=== PATIENT | male | born 1960 | race Caucasian/White ===

== ENCOUNTER 2019-06-16 08:17 | Inpatient (IN) | payer OTHER ==
[2019-06-16 11:47] VITALS: BMI 28.6
--- NOTE | 2019-06-16 14:05 | PN ---
"Teaching Attending Note Name of Resident: Ayanna Davila ATTENDING PHYSICIAN STATEMENT I saw and evaluated the patient. I reviewed the resident's note and discussed the case with the resident. I agree with the resident's findings and plan as documented. SUBJECTIVE:pt here for heroin and benzo detox . s/p ER visit for R LE DOppler 2/2 R LE edema, negative for DVT . OBJECTIVE: wnwd This report was requested by: Keesha Rios | Reference #: [id number] Others' Prescriptions Patient Name: Ruben Harley Date: 1960 Address: [address] [place], [place] [address] [address] [place] [address] Sex: Male Rx Written Rx Dispensed Drug Quantity Days Supply Prescriber Name 06/03/2019 06/05/2019 oxycodone-acetaminophen 5-325 mg tab 20 10 Rubin Bradley MD 03/09/2019 03/09/2019 hydrocodone-acetaminophen 7.5-325 mg tablet 14 7 Rubin Bradley MD Patient Name: Ruben Harley Date: 1960 Address: [address] [place], [place] [address] [address] Sex: Male Rx Written Rx Dispensed Drug Quantity Days Supply Prescriber Name 03/06/2019 03/09/2019 alprazolam 0.5 mg tablet 60 30 CabOrlando torres MD 03/06/2019 03/07/2019 zolpidem tartrate 10 mg tablet 30 30 CabagnOrlando caban MD 02/06/2019 02/12/2019 hydrocodone-acetaminophen 7.5-325 mg tablet 14 7 Rubin Bradley MD 02/07/2019 02/07/2019 alprazolam 0.5 mg tablet 60 30 CabOrlando torres MD 01/31/2019 02/01/2019 zolpidem tartrate 10 mg tablet 30 30 CabOrlando torres MD 01/22/2019 01/22/2019 oxycodone-acetaminophen 5-325 mg tablet 20 10 Rubin Bradley MD 12/26/2018 12/26/2018 oxycodone-acetaminophen 5-325 mg tablet 20 10 Rubin Bradley MD 11/22/2018 11/25/2018 zolpidem tartrate 10 mg tablet 30 30 CabagnOrlando caban MD 11/03/2018 11/07/2018 alprazolam 0.5 mg tablet 60 30 CabagnOrlando caban MD 11/05/2018 11/05/2018 oxycodone-acetaminophen 5-325 mg tablet 20 10 MirnaRubin MD 10/31/2018 10/31/2018 alprazolam 0.5 mg tablet 14 7 Orlando Dey MD 09/09/2018 10/07/2018 zolpidem tartrate 10 mg tablet 30 30 CabOrlando torres MD 07/25/2018 07/28/2018 zolpidem tartrate 5 mg tablet 30 30 CabagnotOrlando MD 06/28/2018 06/28/2018 zolpidem tartrate 5 mg tablet 30 30 CabOrlando torres MD Patient Name: Ruben Harley Date: 1960 Address: [facility] [place] [address] Sex: Male Rx Written Rx Dispensed Drug Quantity Days Supply Prescriber Name 10/29/2018 10/31/2018 zubsolv 5.7-1.4 mg tablet sl 15 15 Vando, Devon 10/29/2018 10/31/2018 zolpidem tartrate 10 mg tablet 30 30 CabagnOrlando caban MD 09/08/2018 09/08/2018 zubsolv 5.7-1.4 mg tablet sl 30 30 Vando, Devon 09/05/2018 09/05/2018 zolpidem tartrate 10 mg tablet 30 30 CabagnotOrlando MD 08/08/2018 08/11/2018 zolpidem tartrate 10 mg tablet 30 30 Vando , Devon 08/08/2018 08/08/2018 zubsolv 5.7-1.4 mg tablet sl 30 30 Vando, Devon 07/11/2018 07/19/2018 zolpidem tartrate 10 mg tablet 30 30 Vando , [place] 07/11/2018 07/11/2018 zubsolv 5.7-1.4 mg tablet sl 30 30 Vando, Devon 06/13/2018 06/25/2018 zolpidem tartrate 10 mg tablet 30 30 Vando , Devon Vital Signs - 24 hr 06/16/19 11:45 Temperature 98.0 F Pulse Rate 69 Respiratory 18 Rate Blood Pressure 164/97 ASSESSMENT AND PLAN: OUD - Methadone detox Sedative use d/o : Valium detox"
--- NOTE | 2019-06-16 14:14 | HP ---
COWS - Scale Resting Pulse: 0= [place] 80 or Below Sweatin= Chills/Flushing Restless Observation: 0= Sits Still Pupil Size: 0= Normal to Room Light Bone or Joint Aches: 1= Mild Discomfort Runny Nose/ Eye Tearin= Runny Nose/Eyes GI Upset > 30mins: 2= Nausea/Diarrhea Tremor Observation: 1= Tremor [place], Not Seen Yawning Observation: 0= None Anxiety or Irritability: 2=Irritable/Anxious Goose Flesh Skin: 0=Smooth Skin COWS Score: 9 CIWA Score Nausea/Vomitin-Mild Nausea/No Vomiting Muscle Tremors: 3 Anxiety: 3 Agitation: 0-Normal Activity Paroxysmal Sweats: No Perspiration Orientation: 0-Oriented Tacttile Disturbances: 1-Very Mild Itch/Numbness Auditory Disturbances: 0-None Visual Disturbances: 0-None Headache: 0-None Present CIWA-Ar Total Score: 8 - Admission Criteria OASAS Guidelines: Admission for Medically Managed Detox: Requires at least one of the followin. CIWA greater than 12 2. Seizures within the past 24 hours 3. Delirium tremens within the past 24 hours 4. Hallucinations within the past 24 hours 5. Acute intervention needed for co occurring medical disorder 6. Acute intervention needed for co occurring psychiatric disorder 7. Severe withdrawal that cannot be handled at a lower level of care (continued vomiting, continued diarrhea, abnormal vital signs) requiring intravenous medication and/or fluids 8. Admitting History and Physical - Admission Chief Complaint: detox, wants to get clean for hip sx History of Present Illness: 59 yo M PMH of HTN, HLD, hypothyroid, polysubstance abuse (cocaine, heroin, fentanyl, suboxone) presents for detox. pt states that he is planning for hip surgery and needs to be "clean" . 5 mo ago pt was in rehab in [place] but relapsed immediately after dc. heroin: 5 bags daily, started in 30s . last use was 3 days ago crack cocaine: $200/day. started in 30s. last use 3 days Fentanyl: pt states its in the crack Suboxone: 3 pills for past 3 days,does not know dosage Xanax, buys 75 at a time and takes 3-4 daily Lives with girlfriend who also uses substances. medication list confirmed with [facility] pharmacy , recently filled . pt admitted for detox. pt requests letter for ortho once detox is completed History Source: Patient Limitations to Obtaining History: No Limitations - Past Medical History Cardiovascular: Yes: HTN, Hyperlipdemia Psych: Yes: Anxiety Musculoskeletal: Yes: Osteoarthritis Endocrine: Yes: Hypothyroidism - Past Surgical History Additional Past Surgical History: R and L elbow Admission ROS S - HPI Allergies/Adverse Reactions: Allergies Allergy/AdvReac Type Severity Reaction Status Date / Time No Known Allergies Allergy Verified 06/16/19 10:03 - Ebola screening Have you traveled outside of the country in the last 21 days: No Have you had contact with anyone from an Ebola affected area: No Do you have a fever: No - Review of Systems Constitutional: Chills Respiratory: denies: Shortness of Breath Cardiac: denies: Chest Pain GI: reports: Diarrhea, Nausea Neuro: reports: Unsteady Gait Psychiatric: reports: Orientated x3, Anxious Patient History - Smoking Cessation Smoking history: Never smoked - Substances abused Heroin Substance route: Injection Frequency: Daily Amount used: 5 bags Age of first use: 30 Date of last use: 06/13/19 Cocaine Substance route: Smoking Frequency: Daily Amount used: $200 Age of first use: 34 Date of last use: 06/13/19 Buprenorphine Other (specify): for the last 3 days Substance route: Oral Frequency: Daily Amount used: 1 strip Age of first use: 59 Date of last use: 06/16/19 Alprazolam (Xanax) Substance route: Oral Frequency: Daily Amount used: 3-4 pills Age of first use: 59 Date of last use: 06/16/19 Admission Physical Exam [facility] - Vital Signs Vital Signs: Vital Signs - 24 hr 06/16/19 11:45 Temperature 98.0 F Pulse Rate 69 Respiratory 18 Rate Blood Pressure 164/97 - Physical General Appearance: Yes: Within Normal Limits, No Apparent Distress, Tremorous, Irritable, Anxious HEENTM: Yes: EOMI, SORAIDA, Pharynx Normal Respiratory: Yes: Lungs Clear, Normal Breath Sounds, No Accessory Muscle Use Abdominal: Yes: Non Tender, Soft, Hepatomegaly. No: Distended, Tenderness Back: No: CVA Tenderness Musculoskeletal: Yes: Joint Stiffness (L hip stiffness and pain), Other (walks with walker) Extremities: No: Calf Tenderness Neurological: Yes: career development facilitator II-XII NML intact, Fully Oriented - Diagnostic (1) Heroin addiction Current Visit: Yes Status: Acute (2) Heroin abuse Current Visit: Yes Status: Acute (3) Cocaine abuse Current Visit: Yes Status: Acute Cleared for Admission [facility] - Detox or Rehab [facility] Level of Care: Medically Managed Detox Regimen/Protocol: Methadone, Valium Breathalyzer - Breathalyzer Breathalyzer: 0 Urine Drug Screen - Test Device Lot number: [id number] Expiration date: 12/24/20 - Control Is test valid?: Yes - Results Drug screen NEGATIVE: No Urine drug screen results: BOOKER-Cocaine, FEN-Fentanyl, BZO-Benzodiazepines, BUP- Suboxone Inpatient Rehab Admission - Rehab Decision to Admit Inpatient rehab admission?: No
[2019-06-16] MEDS ORDERED: cloNIDine HCL 0.1 MG TABLET PO PRN (14:35)
[2019-06-16] MEDS ORDERED: METHADONE HCL 10 MG TABLET (FOR DETOX USE ONLY) PO ONE ×2 (14:35→21:00)
[2019-06-16] MEDS ORDERED: MAGNESIUM HYDROX 2400MG/30ML ORAL SUSPENSION 30 ML CUP PO PRN (14:35)
[2019-06-16] MEDS ORDERED: BISMUTH SUBSALICYLATE 262 MG/15 ML BTL PO PRN (14:35)
[2019-06-16] MEDS ORDERED: IBUPROFEN 400 MG TABLET (FP) PO PRN (14:35)
[2019-06-16] MEDS ORDERED: ACETAMINOPHEN 325 MG TABLET (FP) PO PRN ×2 (14:35)
[2019-06-16] MEDS ORDERED: hydrOXYzine PAMOATE 25 MG CAPSULE (FP) PO PRN (14:35)
[2019-06-16] MEDS ORDERED: MAG HYDROX/AL HYDROX/SIMETH 30 ML UNIT-DOSE CUP PO PRN (14:35)
[2019-06-16] MEDS ORDERED: MENTHOL/PHENOL 1 EACH UD MM PRN (14:35)
[2019-06-16] MEDS ORDERED: MELATONIN 5 MG TABLETS PO PRN (14:35)
[2019-06-16] MEDS ORDERED: MAGNESIUM CITRATE 300 ML BOTTLE PO PRN (14:35)
[2019-06-16] MEDS: diazePAM 5 MG TABLET PO SCH ×2 (16:09→21:15)
[2019-06-16 17:40] LABS: HEMATOCRIT 45.8 % (35.4-49); HEMOGLOBIN 15.7 GM/dL (11.7-16.9); MCH 30.6 pg (25.7-33.7); MCHC 34.3 g/dl (32.0-35.9); MEAN CELL VOLUME 89.2 fl (80-96); MEAN PLT VOLUME 7.8 fl (7.5-11.1); PLATELET COUNT 324 K/MM3 (134-434); RBC 5.14 M/mm3 (4.00-5.60); RDW 13.5 % (11.9-15.9); WHITE BLOOD COUNT 7.6 K/mm3 (4.0-10.0)
[2019-06-16 17:47] LABS: ALBUMIN 4.2 g/dl (3.4-5.0); BILIRUBIN,TOTAL 0.4 mg/dL (0.2-1); BLOOD UREA NITROGEN 20.1 mg/dL (7-18); CALCIUM 9.4 mg/dL (8.5-10.1); CREATININE 1.3 mg/dL (0.55-1.3); POTASSIUM 3.6 mmol/L (3.5-5.1); TOT PROT 7.7 g/dl (6.4-8.2)
[2019-06-16] MEDS: ASPIRIN 81 MG CHEWABLE TABLETS PO SCH (21:15)
[2019-06-16] MEDS: ATORVASTATIN CA 20 MG TABLET (FP) PO SCH (21:15)
[2019-06-16] MEDS: THIAMINE HCL 100 MG TABLET (FP) PO SCH (21:15)
[2019-06-17] MEDS: diazePAM 5 MG TABLET PO SCH ×3 (05:38→21:10)
[2019-06-17] MEDS: LEVOTHYROXINE NA 25 MCG TABLET (FP) PO SCH (06:57)
--- NOTE | 2019-06-17 08:17 | CONSULT ---
[facility] Psychiatric Consult - Data Date of interview: 06/17/19 Admission source: Internet Identifying data: Mr Harley is a 59 years old male, retired from [employer], domiciled seeking detox treatment for opioid, cocaine and benzodiazepine Substance Abuse History: Reports history of heroin, fentanyl, suboxone, crack cocaine and xanax use. Refer to addiction counselor's summary for further information Medical History: Significant for hypertension, dyslipidemia, hypothyroidism, osteoarthritis and benign prostatic hyperplasia Psychiatric History: Reports that his first psychatric contact was in [address] Baker, a private psychiatrist in the [place] and he was prescribed Gabapentin for depression and anxiety. He said that he saw Dr Baker for only a few months. Reports that he was last prescribed Gabapentin 600 mg/tid 2 months ago while in a rehab in [facility]. Reports one previous psychiatric admission in 2018 to [facility] for suicidal attempt by ingesting a lot of Ambien. 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 was told to get detox in order to have hip surgery Mental Status Exam - Mental Status Exam Alert and Oriented to: Time, Place, Person Cognitive Function: Fair Patient Appearance: Disheveled Mood: Anxious Affect: Appropriate Speech Pattern: Clear Voice Loudness: Normal Thought Process: Intact, Goal Oriented Hallucinations: Denies Suicidal Ideation: Denies Homicidal Ideation: Denies Insight/Judgement: Poor Sleep: Poorly Appetite: Fair Muscle strength/Tone: Normal Gait/Station: Normal Psychiatric Findings - Problem List ([place] 1, 2,3) (1) Depression with anxiety Current Visit: Yes Status: Chronic (2) Substance-induced anxiety disorder Current Visit: Yes Status: Acute (3) Substance-induced sleep disorder Current Visit: Yes Status: Acute (4) Uncomplicated opioid dependence Current Visit: Yes Status: Acute (5) Cocaine dependence Current Visit: Yes Status: Acute (6) Sedative, hypnotic or anxiolytic dependence with withdrawal, uncomplicated Current Visit: Yes Status: Acute (7) HTN (hypertension) Current Visit: Yes Status: Chronic (8) HLD (hyperlipidemia) Current Visit: Yes Status: Acute (9) Hypothyroidism Current Visit: Yes Status: Chronic (10) Osteoarthritis Current Visit: Yes Status: Chronic - Initial Treatment Plan Initial Treatment Plan: 1) Continue Gabapentin 600 mg po TID. 2) Start Belsomra 10 mg po HS prn for insomnia. 3) Continue inpatient detoxification
[2019-06-17] MEDS ORDERED: METHADONE HCL 5 MG TABLET (FOR DETOX USE ONLY) PO ONE (10:00)
[2019-06-17] MEDS ORDERED: LEVOTHYROXINE NA 75 MCG TABLET (FP) PO SCH (10:00)
[2019-06-17] MEDS: GABAPENTIN 100 MG CAPSULE PO SCH (10:26)
[2019-06-17] MEDS: TAMSULOSIN HCL 0.4 MG CAP PO SCH (10:26)
[2019-06-17] MEDS: PRENATAL VITAMINS W/ FOLIC ACID TABLET (FP) PO SCH (10:26)
[2019-06-17] MEDS: NEBIVOLOL 5 MG TABLET (FP) PO SCH (10:26)
[2019-06-17] MEDS: amLODIPine BESYLATE 10 MG TABLET (FP) PO SCH (10:26)
[2019-06-17] MEDS: ASPIRIN 81 MG CHEWABLE TABLETS PO SCH (10:26)
--- NOTE | 2019-06-17 10:29 | EKG ---
Test Reason : Blood Pressure : / mmHG Vent. Rate : 064 BPM Atrial Rate : 064 BPM P-R Int : 182 ms QRS Dur : 090 ms QT Int : 400 ms P-R-T Axes : 032 023 042 degrees QTc Int : 412 ms NORMAL SINUS RHYTHM NORMAL ECG NO PREVIOUS ECGS AVAILABLE Confirmed by SCARLET HERNANDEZ MD ([id number]) on 06/17/2019 10:29:27 AM Referred By: Confirmed By:SCARLET HERNANDEZ MD
--- NOTE | 2019-06-17 12:06 | PN ---
[facility] CIWA - CIWA Score Nausea/Vomitin-No Nausea/No Vomiting Muscle Tremors: 3 Anxiety: 2 Agitation: 3 Paroxysmal Sweats: 2 Orientation: 0-Oriented Tacttile Disturbances: 0-None Auditory Disturbances: 0-None Visual Disturbances: 0-None Headache: 0-None Present CIWA-Ar Total Score: 10 BHS COWS - Scale Resting Pulse: 1= [place] 81-100 Sweatin= Chills/Flushing Restless Observation: 1= Difficult to Sit Still Pupil Size: 0= Normal to Room Light Bone or Joint Aches: 2= Severe Diffuse Aches Runny Nose/ Eye Tearin= Nasal Congestion GI Upset > 30mins: 0= None Tremor Observation of Outstretched Hands: 1= Tremor [place], Not Seen Yawning Observation: 1= 1-2x During Session Anxiety or Irritability: 1=Feels Anxious/Irritable Goose Flesh Skin: 0=Smooth Skin COWS Score: 9 S Progress Note (SOAP) Subjective: body aches sweats agitation irritable Objective: 06/17/19 12:05 Vital Signs Temperature 97.7 F 06/17/19 09:36 Pulse Rate 73 06/17/19 09:36 Respiratory Rate 18 06/17/19 09:36 Blood Pressure 117/63 06/17/19 09:36 O2 Sat by Pulse Oximetry (%) Laboratory Tests 06/16/19 06/16/19 06/16/19 14:50 14:50 14:50 WBC 7.6 RBC 5.14 Hgb 15.7 Hct 45.8 MCV 89.2 MCH 30.6 MCHC 34.3 RDW 13.5 Plt Count 324 MPV 7.8 Sodium 137 Potassium 3.6 Chloride 105 Carbon Dioxide 21 Anion Gap 11 BUN 20.1 H Creatinine 1.3 Est GFR (CKD-EPI)AfAm 68.74 Est GFR (CKD-EPI)NonAf 59.31 Random Glucose 178 H Calcium 9.4 Total Bilirubin 0.4 AST 15 ALT 22 Alkaline Phosphatase 79 Total Protein 7.7 Albumin 4.2 RPR Titer Nonreactive labs noted aaox3 ambulating no acute distress
--- NOTE | 2019-06-17 12:17 | PN ---
[facility] CIWA - CIWA Score Nausea/Vomitin-No Nausea/No Vomiting Muscle Tremors: 2 Anxiety: 2 Agitation: 2 Paroxysmal Sweats: 1-Minimal Palms Moist Orientation: 0-Oriented Tacttile Disturbances: 0-None Auditory Disturbances: 0-None Visual Disturbances: 0-None Headache: 0-None Present CIWA-Ar Total Score: 7 BHS COWS - Scale Resting Pulse: 1= [place] 81-100 Sweatin= Chills/Flushing Restless Observation: 1= Difficult to Sit Still Pupil Size: 0= Normal to Room Light Bone or Joint Aches: 1= Mild Discomfort Runny Nose/ Eye Tearin= Nasal Congestion GI Upset > 30mins: 1= Stomach Cramp Tremor Observation of Outstretched Hands: 1= Tremor [place], Not Seen Yawning Observation: 1= 1-2x During Session Anxiety or Irritability: 1=Feels Anxious/Irritable Goose Flesh Skin: 0=Smooth Skin COWS Score: 9 S Progress Note (SOAP) Subjective: sweats agitation body aches irritable Objective: 06/17/19 12:15 Vital Signs Temperature 97.7 F 06/17/19 09:36 Pulse Rate 73 06/17/19 09:36 Respiratory Rate 18 06/17/19 09:36 Blood Pressure 117/63 06/17/19 09:36 O2 Sat by Pulse Oximetry (%) Laboratory Tests 06/16/19 06/16/19 06/16/19 14:50 14:50 14:50 WBC 7.6 RBC 5.14 Hgb 15.7 Hct 45.8 MCV 89.2 MCH 30.6 MCHC 34.3 RDW 13.5 Plt Count 324 MPV 7.8 Sodium 137 Potassium 3.6 Chloride 105 Carbon Dioxide 21 Anion Gap 11 BUN 20.1 H Creatinine 1.3 Est GFR (CKD-EPI)AfAm 68.74 Est GFR (CKD-EPI)NonAf 59.31 Random Glucose 178 H Calcium 9.4 Total Bilirubin 0.4 AST 15 ALT 22 Alkaline Phosphatase 79 Total Protein 7.7 Albumin 4.2 RPR Titer Nonreactive labs noted elevated glucose 178. pt denies having diabetes nor family h/o diabetes. will order random glucose in am aaox3 ambulating no acute distress Assessment: 06/17/19 12:17 withdrawals Plan: continue detox increase fluids random glucose ordered
[2019-06-17] MEDS: GABAPENTIN 300 MG CAPSULE PO SCH ×2 (13:00→21:10)
[2019-06-17] MEDS: METHOCARBAMOL 500 MG TABLET PO PRN (17:31)
[2019-06-17] MEDS: THIAMINE HCL 100 MG TABLET (FP) PO SCH (21:10)
[2019-06-17] MEDS: SUVOREXANT 10 MG TABLET PO PRN (21:10)
[2019-06-17] MEDS: ATORVASTATIN CA 20 MG TABLET (FP) PO SCH (21:10)
[2019-06-18] MEDS: diazePAM 5 MG TABLET PO SCH ×2 (06:04→17:26)
[2019-06-18] MEDS: GABAPENTIN 300 MG CAPSULE PO SCH ×3 (06:04→22:19)
[2019-06-18] MEDS: LEVOTHYROXINE NA 25 MCG TABLET (FP) PO SCH (07:03)
--- NOTE | 2019-06-18 09:00 | PN ---
[facility] CIWA - CIWA Score Nausea/Vomitin-No Nausea/No Vomiting Muscle Tremors: 1-None Visible, but [place] Anxiety: 2 Agitation: 0-Normal Activity Paroxysmal Sweats: 2 Orientation: 0-Oriented Tacttile Disturbances: 2-Mild Itch/Numbness/Burn Auditory Disturbances: 0-None Visual Disturbances: 0-None Headache: 0-None Present CIWA-Ar Total Score: 7 S COWS - Scale Resting Pulse: 0= [place] 80 or Below Sweatin= Chills/Flushing Restless Observation: 1= Difficult to Sit Still Pupil Size: 0= Normal to Room Light Bone or Joint Aches: 1= Mild Discomfort Runny Nose/ Eye Tearin= None GI Upset > 30mins: 0= None Tremor Observation of Outstretched Hands: 1= Tremor [place], Not Seen Yawning Observation: 1= 1-2x During Session Anxiety or Irritability: 1=Feels Anxious/Irritable Goose Flesh Skin: 0=Smooth Skin COWS Score: 6 BHS Progress Note (SOAP) Subjective: Patient is a 59 yo male with hx of polysustance dependence is here on valium and methadone protocol, reports needs detox to be able to have hip surgery in the future, c/o body aches, chills, dry skin Objective: 06/18/19 08:59 Vital Signs Temperature 98.2 F 06/18/19 06:58 Pulse Rate 57 L 06/18/19 06:58 Respiratory Rate 18 06/18/19 06:58 Blood Pressure 116/78 06/18/19 06:58 O2 Sat by Pulse Oximetry (%) Laboratory Last Values WBC 7.6 K/mm3 (4.0-10.0) 06/16/19 14:50 RBC 5.14 M/mm3 (4.00-5.60) 06/16/19 14:50 Hgb 15.7 GM/dL (11.7-16.9) 06/16/19 14:50 Hct 45.8 % (35.4-49) 06/16/19 14:50 MCV 89.2 fl (80-96) 06/16/19 14:50 MCH 30.6 pg (25.7-33.7) 06/16/19 14:50 MCHC 34.3 g/dl (32.0-35.9) 06/16/19 14:50 RDW 13.5 % (11.9-15.9) 06/16/19 14:50 Plt Count 324 K/MM3 (134-434) 06/16/19 14:50 MPV 7.8 fl (7.5-11.1) 06/16/19 14:50 Sodium 137 mmol/L (136-145) 06/16/19 14:50 Potassium 3.6 mmol/L (3.5-5.1) 06/16/19 14:50 Chloride 105 mmol/L (98-107) 06/16/19 14:50 Carbon Dioxide 21 mmol/L (21-32) 06/16/19 14:50 Anion Gap 11 MMOL/L (8-16) 06/16/19 14:50 BUN 20.1 mg/dL (7-18) H 06/16/19 14:50 Creatinine 1.3 mg/dL (0.55-1.3) 06/16/19 14:50 Est GFR (CKD-EPI)AfAm 68.74 06/16/19 14:50 Est GFR (CKD-EPI)NonAf 59.31 06/16/19 14:50 Random Glucose 178 mg/dL (74-106) H 06/16/19 14:50 Calcium 9.4 mg/dL (8.5-10.1) 06/16/19 14:50 Total Bilirubin 0.4 mg/dL (0.2-1) 06/16/19 14:50 AST 15 U/L (15-37) 06/16/19 14:50 ALT 22 U/L (13-61) 06/16/19 14:50 Alkaline Phosphatase 79 U/L (45-117) 06/16/19 14:50 Total Protein 7.7 g/dl (6.4-8.2) 06/16/19 14:50 Albumin 4.2 g/dl (3.4-5.0) 06/16/19 14:50 RPR Titer Nonreactive (NONREACTIVE) 06/16/19 14:50 Assessment: 06/18/19 12:27 Aox3 no acute distress EENT WNL + dry skin full ROM ambulating in the unit with walker withdrawal sx Plan: follow up with primary care provider post detox, patient verbalizes understanding Increase fluids continue detox continue to monitor
[2019-06-18] MEDS ORDERED: METHADONE HCL 10 MG TABLET (FOR DETOX USE ONLY) PO ONE (10:00)
[2019-06-18] MEDS: amLODIPine BESYLATE 10 MG TABLET (FP) PO SCH (10:14)
[2019-06-18] MEDS: TAMSULOSIN HCL 0.4 MG CAP PO SCH (10:14)
[2019-06-18] MEDS: GABAPENTIN 100 MG CAPSULE PO SCH (10:14)
[2019-06-18] MEDS: ASPIRIN 81 MG CHEWABLE TABLETS PO SCH (10:14)
[2019-06-18] MEDS: NEBIVOLOL 5 MG TABLET (FP) PO SCH (10:14)
[2019-06-18] MEDS: PRENATAL VITAMINS W/ FOLIC ACID TABLET (FP) PO SCH (10:14)
[2019-06-18] MEDS: diazePAM 5 MG TABLET PO PRN ×2 (10:18→23:48)
[2019-06-18] MEDS: VITAMINS A AND D TOPICAL OINTMENT 60 GM TUBE TP SCH ×2 (11:00→22:24)
[2019-06-18] MEDS: THIAMINE HCL 100 MG TABLET (FP) PO SCH (22:19)
[2019-06-18] MEDS: ATORVASTATIN CA 20 MG TABLET (FP) PO SCH (22:19)
[2019-06-18] MEDS: SUVOREXANT 10 MG TABLET PO PRN (22:23)
[2019-06-18] MEDS: METHOCARBAMOL 500 MG TABLET PO PRN (23:48)
[2019-06-19] MEDS ORDERED: diazePAM 5 MG TABLET PO ONE (06:00)
[2019-06-19] MEDS ORDERED: METHADONE HCL 5 MG TABLET (FOR DETOX USE ONLY) PO ONE (06:00)
[2019-06-19] MEDS: LEVOTHYROXINE NA 25 MCG TABLET (FP) PO SCH (06:22)
[2019-06-19] MEDS: GABAPENTIN 300 MG CAPSULE PO SCH (06:22)
[2019-06-19 06:49] VITALS: BP 119/65; PULSE 74; TEMP 97.5
== END 2019-06-19 07:01 | disposition home or self-care (01) | DRG 897 ==
LOC: YASAS 08:17 → Y6N 15:28
PROVIDERS: ADMIT Allergy & Immunology; ATTEND Allergy & Immunology
PROC: HZ2ZZZZ Detoxification Services for Substance Abuse Treatment (ICD-10-PCS; principal; 2019-06-16)
DX: F11.23 Opioid dependence with withdrawal (principal); F14.20 Cocaine dependence, uncomplicated; F19.280 Other psychoactive substance dependence with psychoactive substance-induced anxiety disorder; F19.282 Other psychoactive substance dependence with psychoactive substance-induced sleep disorder; F13.230 Sedative, hypnotic or anxiolytic dependence with withdrawal, uncomplicated; F41.8 Other specified anxiety disorders; F32.9 Major depressive disorder, single episode, unspecified; I10 Essential (primary) hypertension; E78.5 Hyperlipidemia, unspecified; E03.9 Hypothyroidism, unspecified; M19.90 Unspecified osteoarthritis, unspecified site; N40.0 Benign prostatic hyperplasia without lower urinary tract symptoms; Z99.89 Dependence on other enabling machines and devices
CPT/HCPCS: 36415; 80053; 82947; 85027; 86593; 93005; 93010

== ENCOUNTER 2019-06-16 09:47 | Emergency (ER) | payer OTHER ==
--- NOTE | 2019-06-16 10:06 | PDOC ---
Rapid Medical Evaluation Chief Complaint: Edema Time Seen by Provider: 06/16/19 10:02 Medical Evaluation: 06/16/19 10:02 Patient is 59M with history of HTN, anxiety and polysubstance abuse here today complaining of leg swelling. Sent from [facility]. Mild swelling to R leg. Vitals normal and stable. Patient to ED. Discharge Disposition - Diagnosis Leg swelling - Discharge Dispostion Condition at time of disposition: Stable - Referrals - Patient Instructions - Post Discharge Activity
[2019-06-16 10:07] VITALS: BP 132/83; PULSE 68; TEMP 98.4; BMI 26.7
--- NOTE | 2019-06-16 10:22 | PDOC ---
History of Present Illness - General Chief Complaint: Edema Stated Complaint: SWELLING ON RT.LEG Time Seen by Provider: 06/16/19 10:02 History Source: Patient Exam Limitations: No Limitations - History of Present Illness Initial Comments: 06/16/19 11:12 59y M hx of HTN, anxiety, polysubstance abuse presents with complaint of leg sweling. The patient has been trying to get detox for his pending hip surgery he went to [facility] was noted to have right calf swelling and was sent to the ED for evaluation. The patient notes that the swelling for approximately 10 days he denies any associated pain, shortness of breath, nausea, vomiting, chest pain, dyspnea exertion, hemoptysis, recent trauma. Patient states that he sometimes does have swelling and is currently better than usual. social: heroin, cocaine use ROS Constitutional - no reported Fever, Chills, Respiratory: no reported cough, sob, hemoptysis Cardiac: no reported chest pain, palpitations, light headedness, leg swelling Abd/GI: no reported abd pain, nausea, vomiting, : no reported dysuria, frequency, discharge Musculskelatal - +R leg swellingno reported back pain, joint swelling skin - no reported bruising, erythema, rash neurological: no reported headache, numbness, focal weakness, tingling, ataxia, hematologic: no reported easy bruising, easy bleeding Exam: GENERAL: The patient is awake, alert, and fully oriented, Nontoxic - in no acute distress. HEAD: Normocephalic, atraumatic. EYES: extraocular movements intact, sclera anicteric, conjunctiva clear. ENT: Normal voice, Moist mucous membranes. NECK: Normal range of motion, supple LUNGS: Breath sounds equal, clear to auscultation bilaterally. No wheezes, no rhonchi, no rales. HEART: Regular rate and rhythm, normal S1 and S2 without murmur, rub or gallop. ABDOMEN: Soft, nontender, No guarding, no rebound. No CVA tenderness EXTREMITIES: Normal range of motion, +1 pitting edema. No calf tenderness, negative Homans sign NEUROLOGICAL: No facial assymetry, Normal speech, PSYCH: Normal mood, normal affect. Patient awaiting ultrasound to rule out DVT if negative anticipate discharge back to [facility] for detox. No clinical signs or symptoms suggestive of pulmonary embolism Past History - Past Medical History Allergies/Adverse Reactions: Allergies Allergy/AdvReac Type Severity Reaction Status Date / Time No Known Allergies Allergy Verified 06/16/19 10:03 Home Medications: Ambulatory Orders Amlodipine Besylate [Norvasc -] 10 mg PO DAILY 06/16/19 Atorvastatin Calcium [Lipitor] 20 mg PO HS 06/16/19 Gabapentin 100 mg PO ASDIR 06/16/19 Levothyroxine [Synthroid -] 1 tab PO DAILY 06/16/19 Nebivolol [Bystolic -] 5 mg PO DAILY 06/16/19 COPD: No HTN: Yes Other medical history: substance abuse - Immunization History Immunization Up to Date: No - Psycho Social/Smoking Cessation Hx Smoking History: Current every day smoker Have you smoked in the past 12 months: Yes Information on smoking cessation initiated: No Hx Alcohol Use: Yes Drug/Substance Use Hx: Yes *Physical Exam - Vital Signs Last Vital Signs Temp Pulse Resp BP Pulse Ox 98.4 F 68 16 132/83 99 06/16/19 10:04 06/16/19 10:04 06/16/19 10:04 06/16/19 10:04 06/16/19 10:04 Medical Decision Making - Medical Decision Making 06/16/19 11:18 US negative for DVT will dc out outpt fu Discharge - Discharge Information Problems reviewed: Yes Clinical Impression/Diagnosis: Leg swelling Condition: Stable Disposition: HOME - Admission No - Follow up/Referral Referrals: [facility] [Provider Group] - Patient Discharge Instructions Patient Printed Discharge Instructions: DI for Peripheral Edema, Unilateral Additional Instructions: Return to the emergency department immediately with ANY new, persistent or worsening symptoms. You MUST call and follow up with your doctor in 5 daysfor further evaluation of your symptoms. Results were discussed with you. Please make sure your doctor reviews the results of your emergency evaluation. Your Emergency Department visit is not complete without a follow up with your doctor. Print Language: FRENCH - Post Discharge Activity
== END 2019-06-16 12:00 | disposition home or self-care (01) ==
LOC: JER 09:47
DX: R22.41 Localized swelling, mass and lump, right lower limb (principal); I10 Essential (primary) hypertension; F19.10 Other psychoactive substance abuse, uncomplicated; F17.210 Nicotine dependence, cigarettes, uncomplicated
CPT/HCPCS: 93971-TC; 99282-25

== ENCOUNTER 2020-04-26 06:38 | Inpatient (IN) | payer OTHER ==
[2020-04-25 14:48] VITALS: BMI 27.2
[2020-04-26] MEDS ORDERED: VANCOMYCIN 1,000 MG VIAL (RESTRICTED TO ID ONLY) ONE (07:05)
[2020-04-26] MEDS ORDERED: ceFAZolin SODIUM 1 GM VIAL ONE ×2 (07:05→10:01)
[2020-04-26] MEDS ORDERED: CELECOXIB 200 MG CAPSULE PO ONE (07:06)
[2020-04-26] MEDS ORDERED: DEXAMETHASONE SOD PHOSPHATE/PF 10 MG/ML SDV ONE (08:25)
[2020-04-26] MEDS ORDERED: BUPIVACAINE HCL/PF 0.5% (5 MG/ML) 30 ML VIAL IJ ONE (08:25)
[2020-04-26] MEDS ORDERED: MIDAZOLAM HCL 2 MG/2 ML SINGLE DOSE VIAL ONE ×3 (08:25→10:45)
[2020-04-26] MEDS ORDERED: CEFAZOLIN 2 GM in DEXTROSE 5%-WATER - 50 ML IVPB ONE (09:30)
[2020-04-26] MEDS ORDERED: TRANEXAMIC ACID 1000 MG/10 ML VIAL IVPUSH ONE (09:30)
[2020-04-26] MEDS ORDERED: MAGNESIUM HYDROX 2400MG/30ML ORAL SUSPENSION 30 ML CUP PO PRN (09:53)
[2020-04-26] MEDS ORDERED: MAG HYDROX/AL HYDROX/SIMETH 30 ML UNIT-DOSE CUP PO PRN (09:53)
[2020-04-26] MEDS ORDERED: ONDANSETRON 4 MG/2 ML VIAL IVPUSH PRN ×2 (09:53→12:15)
[2020-04-26] MEDS ORDERED: SUCCINYLCHOLINE CHLORIDE 200 MG/10 ML SYRINGE ONE (09:53)
[2020-04-26] MEDS ORDERED: PROPOFOL 20 ML ONE (09:53)
[2020-04-26] MEDS ORDERED: LACTATED RINGERS SOLUTION 1,000 ML IV SCH (10:00)
[2020-04-26] MEDS ORDERED: DEXAMETHASONE SOD PHOSPHATE 4 MG/1 ML VIAL ONE (10:01)
[2020-04-26] MEDS ORDERED: TRANEXAMIC ACID 1000 MG/10 ML VIAL ONE (10:01)
[2020-04-26] MEDS ORDERED: KETOROLAC TROMETHAMINE 30 MG/1 ML VIAL ONE (10:01)
[2020-04-26] MEDS ORDERED: VANCOMYCIN 1,000 MG VIAL (RESTRICTED TO ID ONLY) IVPB ONE (11:00)
[2020-04-26] MEDS ORDERED: ZOLPIDEM TARTRATE 5 MG TABLET PO PRN (11:20)
[2020-04-26] MEDS ORDERED: PROMETHAZINE HCL 25 MG/1 ML VIAL IVPB PRN (12:15)
[2020-04-26] MEDS ORDERED: oxyCODONE HCL 5 MG TABLET PO PRN (12:15)
[2020-04-26] MEDS ORDERED: ACETAMINOPHEN 325 MG TABLET (FP) ONE (13:04)
[2020-04-26] MEDS: ACETAMINOPHEN 325 MG TABLET (FP) PO SCH ×2 (13:45→21:10)
[2020-04-26] MEDS: GABAPENTIN 300 MG CAPSULE PO SCH ×2 (15:02→21:09)
[2020-04-26] MEDS: MULTIVITAMINS (DAILY MVI) TABLET (FP) PO SCH (15:02)
[2020-04-26] MEDS: SENNOSIDES/DOCUSATE COMBO (SENNA PLUS) TABLET (UD) PO SCH ×2 (15:03→21:09)
[2020-04-26] MEDS: PANTOPRAZOLE 40 MG TABLET PO SCH (15:03)
[2020-04-26] MEDS: CEFAZOLIN 2 GM/D5W 2 GM/50 ML ML IVPB SCH (17:20)
[2020-04-26] MEDS: oxyCODONE HCL 10 MG SUSTAINED ACTING TABLET PO SCH (21:09)
[2020-04-26] MEDS ORDERED: PATIENT'S OWN MEDICATION (NON-FORMULARY) (Zolpidem Tartrate [Ambien] 10 MG Tablet) PO SCH (22:00)
[2020-04-27] MEDS: CEFAZOLIN 2 GM/D5W 2 GM/50 ML ML IVPB SCH (02:16)
[2020-04-27] MEDS: ACETAMINOPHEN 325 MG TABLET (FP) PO SCH ×3 (03:16→14:04)
[2020-04-27] MEDS: oxyCODONE HCL 5 MG TABLET PO PRN ×3 (03:21→13:00)
[2020-04-27] MEDS: GABAPENTIN 300 MG CAPSULE PO SCH ×2 (06:00→13:00)
[2020-04-27] MEDS ORDERED: ASPIRIN 325 MG TABLET PO SCH (08:00)
[2020-04-27 08:44] LABS: HEMATOCRIT 39.6 % (35.4-49); HEMOGLOBIN 13.1 GM/dl (11.7-16.9); MCH 30.3 pg (25.7-33.7); MCHC 33.1 g/dl (32.0-35.9); MEAN CELL VOLUME 91.5 fl (80-96); MEAN PLT VOLUME 7.6 fl (7.5-11.1); PLATELET COUNT 288 K/MM3 (134-434); RBC 4.33 M/mm3 (4.00-5.60); RDW 12.9 % (11.9-15.9); WHITE BLOOD COUNT 14.3 K/mm3 (4.0-10.8)
[2020-04-27] MEDS: MULTIVITAMINS (DAILY MVI) TABLET (FP) PO SCH (09:16)
[2020-04-27] MEDS: SENNOSIDES/DOCUSATE COMBO (SENNA PLUS) TABLET (UD) PO SCH (09:16)
[2020-04-27] MEDS: PANTOPRAZOLE 40 MG TABLET PO SCH (09:16)
[2020-04-27] MEDS: oxyCODONE HCL 10 MG SUSTAINED ACTING TABLET PO SCH (09:17)
[2020-04-27] MEDS ORDERED: NEBIVOLOL 5 MG TABLET (FP) PO SCH (10:00)
[2020-04-27 14:09] VITALS: BP 126/62; PULSE 67; TEMP 99
== END 2020-04-27 15:20 | disposition home health service (06) | DRG 470 ==
LOC: FM/S 06:38
PROVIDERS: ADMIT Orthopaedic Surgery; ATTEND Orthopaedic Surgery
PROC: 8E0W0CZ Robotic Assisted Procedure of Trunk Region, Open Approach (ICD-10-PCS; 2020-04-26)
PROC: 0SRB0JA Replacement of Left Hip Joint with Synthetic Substitute, Uncemented, Open Approach (ICD-10-PCS; principal; 2020-04-26 10:17)
DX: M16.12 Unilateral primary osteoarthritis, left hip (principal); I10 Essential (primary) hypertension; E78.5 Hyperlipidemia, unspecified; E03.9 Hypothyroidism, unspecified; F41.9 Anxiety disorder, unspecified
CPT/HCPCS: 36415; 73502-TC-LT-FY; 85027; 88305-TC; 88311-TC; 94760; 97010-GP; 97116-GP; 97163-GP